=== PATIENT | male | born 1980 | race Caucasian/White ===

== ENCOUNTER → 2025-03-31 14:58 | Outpatient (CLI) | payer OTHER, SELFPAY ==
--- NOTE | 2025-03-31 15:09 | DI.RAD.S_ITS ---
PROCEDURE: XR SHOULDER LT MIN 2V
== END ==
PROVIDERS: Referring Provider Chiropractor; Visit Provider Chiropractor
DX: M13.811 Other specified arthritis, right shoulder (principal)
CPT/HCPCS: 73030